=== PATIENT | male | born 1990 | race Caucasian/White ===

== ENCOUNTER 2018-02-17 16:45 | Emergency (ER) | payer MEDICAID ==
[~2018-02-17] VITALS: Ht 175.3 cm; Wt 90.0 kg
[2018-02-17 20:56] VITALS: BP 135/81
== END 2018-02-17 20:57 | disposition home or self-care (01) ==
LOC: ER 16:45
DX: M79.652 Pain in left thigh (principal); F17.200 Nicotine dependence, unspecified, uncomplicated; F12.10 Cannabis abuse, uncomplicated; T87.89 Other complications of amputation stump; X58.XXXA Exposure to other specified factors, initial encounter; Z88.0 Allergy status to penicillin; Z98.890 Other specified postprocedural states
CPT/HCPCS: 99282